=== PATIENT | male | born 1955 ===

== ENCOUNTER 2017-09-07 22:56 | Emergency (ER) | payer MEDICAID, OTHER ==
[~2017-09-07] VITALS: Ht 170.2 cm; Wt 75.1 kg
[~2017-09-07 22:56] MED LIST: LISI-167 PO; METF10002 PO; SIMV40TA3 PO
[2017-09-07 22:57] VITALS: BP 148/71
== END 2017-09-07 23:47 | disposition home or self-care (01) ==
LOC: ED 23:15
DX: L03.114 Cellulitis of left upper limb (principal); I10 Essential (primary) hypertension; E11.9 Type 2 diabetes mellitus without complications
CPT/HCPCS: 99283

== ENCOUNTER 2018-01-03 23:21 | Inpatient (IN) | payer MEDICAID, OTHER ==
[~2018-01-03] VITALS: Ht 165.1 cm; Wt 76.0 kg
[2018-01-03] MEDS ORDERED: ASPIRIN 81 MG TABLET CHEW ONE (23:35)
[2018-01-03] MEDS ORDERED: ASPIRIN 325 MG TABLET PO STA (23:36)
[2018-01-03] MEDS ORDERED: ATOR40TA78 PO (23:42)
[2018-01-03] MEDS ORDERED: CARV6.2512 PO (23:42)
[2018-01-03] MEDS ORDERED: INSU100V13 SQ (23:46)
[2018-01-03 23:49] LABS: BASOPHILS # (AUTO) 0.05 x10^3/uL (0-0.1); BASOPHILS % (AUTO) 1 % (0-1); EOSINOPHILS # (AUTO) 0.02 x10^3/uL (0-0.4); EOSINOPHILS % (AUTO) 0 % (1-7); LYMPHOCYTES # (AUTO) 2.27 x10^3/uL (1-3.4); LYMPHOCYTES % (AUTO) 22 % (22-44); MD NO; MEAN CORPUSCULAR HEMOGLOBIN 29.7 pg (27.5-34.5); MEAN CORPUSCULAR HGB CONC 33.6 g/dL (33.2-36.2); MEAN CORPUSCULAR VOLUME 88.5 fL (81-97); MEAN PLATELET VOLUME 10.5 fL (7.4-10.4); MONOCYTES % (AUTO) 5 % (2-9); NEUTROPHILS # (AUTO) 7.43 x10^3/uL (1.8-6.8); NEUTROPHILS % (AUTO) 72 % (42-75); PLATELET COUNT 196 x10^3/uL (130-400); RED BLOOD COUNT 5.41 x10^6/uL (4.38-5.82); RED CELL DISTRIBUTION WIDTH 13.1 % (9.4-14.8)
[2018-01-04] VITALS (7 sets, daily range): BP systolic 83–114; BP diastolic 55–67
[2018-01-04] LABS: INTERNATIONAL NORMALIZED RATIO 0.93 (0.93-1.1); PROTHROMBIN TIME 9.6 Seconds (9.6-11.5)
[2018-01-04] MEDS ORDERED: SODIUM CHLORIDE 0.9% 1,000 ML IV SCH (00:20)
[2018-01-04] MEDS ORDERED: HEPARIN 25,000 UNITS/500ML PMX 500 ML ONE (00:22)
[2018-01-04] MEDS ORDERED: HEPARIN 5,000 UNITS/ML, 1ML ONE (00:22)
[2018-01-04] MEDS ORDERED: BISACODYL 10 MG SUPP PR PRN (00:30)
[2018-01-04] MEDS ORDERED: HEPARIN 25,000 UNITS/500ML PMX 500 ML IV PRN (00:30)
[2018-01-04] MEDS ORDERED: ONDANSETRON ODT 4 MG PO PRN (00:30)
[2018-01-04] MEDS ORDERED: PROMETHAZINE 25 MG/ML, 1ML IM PRN (00:30)
[2018-01-04] MEDS ORDERED: ONDANSETRON 2MG/ML, 2ML IVPush PRN (00:30)
[2018-01-04] MEDS ORDERED: OXYcodone/APAP 5/325MG TABLET PO PRN (00:30)
[2018-01-04] MEDS ORDERED: TICAGRELOR 90 MG TABLET PO ONE (00:30)
[2018-01-04] MEDS ORDERED: DOCUSATE 100 MG CAPSULE PO PRN (00:30)
[2018-01-04] MEDS ORDERED: POLYETHYLENE GLYCOL 17 GM PACKET PO PRN (00:30)
[2018-01-04] MEDS ORDERED: LABETALOL 5MG/ML, 20ML IVPush PRN (00:30)
[2018-01-04] MEDS ORDERED: HEPARIN 5,000 UNITS/ML, 1ML IV ONE (00:30)
[2018-01-04] MEDS ORDERED: hydrALAzine 20 MG/ML, 1ML IVPush PRN (00:30)
[2018-01-04 00:36] LABS: ALANINE AMINOTRANSFERASE 28 U/L (12-78); ALBUMIN 3.7 g/dL (3.4-5.0); ANION GAP 12 mmol/L (5-15); CHLORIDE 100 mmol/L (98-107); CREATININE 1.11 mg/dL (0.7-1.3)
[2018-01-04 00:38] LABS: ALKALINE PHOSPHATASE 157 U/L (45-117); BILIRUBIN,TOTAL 0.4 mg/dL (0.2-1.0); TOTAL PROTEIN 7.8 g/dL (6.4-8.2)
[2018-01-04 00:56] LABS: HEMOGLOBIN A1C 12.3 % (4.2-6.3)
[2018-01-04 00:57] LABS: FREE T4 (FREE THYROXINE) 1.38 ng/dL (0.76-1.46); THYROID STIMULATING HORMONE 0.378 mIU/L (0.358-3.740)
[2018-01-04] MEDS: INSULIN GLARGINE 100 UNITS/ML, PEN SQ-INSULIN SCH ×2 (02:04→21:02)
[2018-01-04] MEDS: ATORVASTATIN 80 MG TABLET PO SCH ×2 (02:04→21:02)
[2018-01-04] MEDS: INSULIN LISPRO 100 UNITS/ML, PEN SQ-INSULIN SCH ×5 (02:04→21:03)
[2018-01-04 03:17] LABS: MICROSCOPIC AUTO
[2018-01-04 03:21] LABS: CULTURE INDICATED? NO
[2018-01-04 03:46] LABS: BASOPHILS # (AUTO) 0.03 x10^3/uL (0-0.1); BASOPHILS % (AUTO) 0 % (0-1); EOSINOPHILS # (AUTO) 0.03 x10^3/uL (0-0.4); EOSINOPHILS % (AUTO) 0 % (1-7); LYMPHOCYTES # (AUTO) 4.08 x10^3/uL (1-3.4); LYMPHOCYTES % (AUTO) 34 % (22-44); MD NO; MEAN CORPUSCULAR HEMOGLOBIN 30.2 pg (27.5-34.5); MEAN CORPUSCULAR HGB CONC 34.1 g/dL (33.2-36.2); MEAN CORPUSCULAR VOLUME 88.7 fL (81-97); MEAN PLATELET VOLUME 10.3 fL (7.4-10.4); MONOCYTES # (AUTO) 0.77 x10^3/uL (0.2-0.8); MONOCYTES % (AUTO) 6 % (2-9); NEUTROPHILS # (AUTO) 7.18 x10^3/uL (1.8-6.8); NEUTROPHILS % (AUTO) 59 % (42-75); PLATELET COUNT 182 x10^3/uL (130-400); RED BLOOD COUNT 5.33 x10^6/uL (4.38-5.82); RED CELL DISTRIBUTION WIDTH 13.1 % (9.4-14.8)
[2018-01-04 03:56] LABS: ALBUMIN 3.4 g/dL (3.4-5.0); ANION GAP 10 mmol/L (5-15); CALCIUM 8.8 mg/dL (8.5-10.1); CHLORIDE 107 mmol/L (98-107)
[2018-01-04 04:00] LABS: ALANINE AMINOTRANSFERASE 37 U/L (12-78); ALKALINE PHOSPHATASE 140 U/L (45-117); BILIRUBIN,TOTAL 0.7 mg/dL (0.2-1.0); CHOL/HDL RATIO 6.5; CHOLESTEROL, TOTAL 233 mg/dL (140-239); CREATININE 0.83 mg/dL (0.7-1.3); HDL CHOL % 15 % (26-37); HDL CHOLESTEROL (DIRECT) 36 mg/dL (40-60); LDL CHOLESTEROL,CALCULATED 157 mg/dL (54-169); LDL/HDL RATIO 4.4 (0.5-3.0); TOTAL PROTEIN 7.2 g/dL (6.4-8.2); TRIGLYCERIDES 198 mg/dL (50-200); VLDL CHOLESTEROL 40 mg/dL (0-25)
[2018-01-04] MEDS: METOPROLOL TARTRATE 25 MG TABLET PO SCH ×2 (05:13→12:47)
[2018-01-04] MEDS ORDERED: ASPIRIN 325 MG TABLET EC PO SCH (06:00)
[2018-01-04] MEDS: HEPARIN 5,000 UNITS/ML, 1ML IV PRN ×2 (06:54→13:41)
[2018-01-04] MEDS: PANTOPRAZOLE 40 MG IV IVPush SCH (08:19)
[2018-01-04] MEDS: TICAGRELOR 90 MG TABLET PO SCH ×2 (08:20→21:01)
[2018-01-04] MEDS ORDERED: SODIUM CHLORIDE 0.9% 1,000 ML IV ONE (08:53)
[2018-01-04] MEDS ORDERED: SODIUM CHLORIDE 0.9%, 250ML IVBOLUS ONE (13:00)
[2018-01-04] MEDS ORDERED: FENTANYL PF 100 MCG/2ML ONE (16:51)
[2018-01-04] MEDS ORDERED: MIDAZOLAM 1 MG/ML, 5ML ONE (16:51)
[2018-01-04] MEDS ORDERED: BIVALIRUDIN 250 MG ONE (16:51)
[2018-01-04] MEDS ORDERED: TICAGRELOR 90 MG TABLET PO SCH (21:00)
[2018-01-05 02:05] VITALS: BP 92/55
[2018-01-05 05:18] LABS: ANION GAP 9 mmol/L (5-15); CALCIUM 8.7 mg/dL (8.5-10.1); CHLORIDE 113 mmol/L (98-107); CREATININE 0.75 mg/dL (0.7-1.3)
[2018-01-05] MEDS ORDERED: ASPIRIN 81 MG TABLET EC PO SCH (06:00)
[2018-01-05 07:45] VITALS: BP 100/64
[2018-01-05] MEDS: PANTOPRAZOLE 40 MG IV IVPush SCH (08:03)
[2018-01-05] MEDS: METOPROLOL TARTRATE 25 MG TABLET PO SCH ×2 (08:04→20:21)
[2018-01-05] MEDS: TICAGRELOR 90 MG TABLET PO SCH ×2 (08:05→21:31)
[2018-01-05] MEDS: INSULIN LISPRO 100 UNITS/ML, PEN SQ-INSULIN SCH ×3 (08:21→21:22)
[2018-01-05] MEDS ORDERED: SODIUM CHLORIDE 0.9% 1,000 ML IV ONE (10:24)
[2018-01-05] MEDS ORDERED: POTASSIUM CHLORIDE 20 MEQ TAB.ER.PRT PO ONE ×2 (10:30→21:00)
[2018-01-05 14:20] VITALS: BP 104/67
[2018-01-05] MEDS ORDERED: FENTANYL PF 250 MCG/5ML ONE ×2 (14:29→17:07)
[2018-01-05] MEDS ORDERED: PHENYLEPHRINE 10 MG/ML ONE (14:51)
[2018-01-05] MEDS ORDERED: TICAGRELOR 90 MG TABLET ONE (14:53)
[2018-01-05] MEDS ORDERED: HEPARIN 1,000 UNITS/ML, 10ML ONE (14:53)
[2018-01-05] MEDS ORDERED: VERAPAMIL 2.5 MG/ML, 2ML ONE ×2 (14:53→16:23)
[2018-01-05] MEDS ORDERED: LIDOCAINE-MPF 1%, 5ML ONE (14:53)
[2018-01-05] MEDS ORDERED: BIVALIRUDIN 250 MG ONE ×2 (14:53→16:56)
[2018-01-05] MEDS ORDERED: EPINEPHRINE 1 MG/ML, 1ML ONE ×2 (15:13)
[2018-01-05] MEDS ORDERED: PROPOFOL 10 MG/ML, 20ML ONE (15:14)
[2018-01-05] MEDS ORDERED: ROCURONIUM 10MG/ML,5ML ONE (15:14)
[2018-01-05] MEDS ORDERED: SUCCINYLCHOLINE 20 MG/ML, 10ML ONE (15:14)
[2018-01-05] MEDS ORDERED: ONDANSETRON 2MG/ML, 2ML ONE (15:46)
[2018-01-05] MEDS ORDERED: ADENOSINE 6 MG/2 ML ONE (16:54)
[2018-01-05] MEDS ORDERED: MIDAZOLAM 1 MG/ML, 2ML ONE (17:07)
[2018-01-05] MEDS ORDERED: PROPOFOL 50 ML ONE (17:08)
[2018-01-05] MEDS ORDERED: HEPARIN 25,000 UNITS/500ML PMX 500 ML IV SCH (17:37)
[2018-01-05] MEDS ORDERED: HEPARIN 25,000 UNITS in DEXTROSE 10% 500 ML IV SCH (17:37)
[2018-01-05] MEDS ORDERED: HEPARIN 25,000 UNITS in DEXTROSE 20% 500 ML IV SCH (17:37)
[2018-01-05 18:14] LABS: PLATELET COUNT 156 x10^3/uL (130-400)
[2018-01-05 18:16] LABS: ANION GAP 12 mmol/L (5-15); CALCIUM 7.3 mg/dL (8.5-10.1); CHLORIDE 114 mmol/L (98-107); CREATININE 0.94 mg/dL (0.7-1.3)
[2018-01-05] MEDS ORDERED: PROPOFOL 100 ML IV ONE (18:25)
[2018-01-05 18:47] LABS: INTERNATIONAL NORMALIZED RATIO 7.6 (0.93-1.1); PROTHROMBIN TIME 75.2 Seconds (9.6-11.5)
[2018-01-05] MEDS ORDERED: LIDOCAINE-MPF 1%, 2ML ENDO PRN (19:00)
[2018-01-05] MEDS ORDERED: PHARMACY MAY ADJ FOR RENAL FX MC SCH (19:00)
[2018-01-05] MEDS ORDERED: MAGNESIUM SULFATE PMX 2GM/50ML 50 ML IV ONE (20:30)
[2018-01-05] MEDS ORDERED: SODIUM BICARB 8.4%, 50ML SYRINGE IVPush ONE (21:00)
[2018-01-05] MEDS ORDERED: SODIUM CHLORIDE 0.9%, 500ML IVBOLUS ONE (21:00)
[2018-01-05] MEDS ORDERED: SODIUM BICARBONATE 1 MEQ/ML, 50ML VIAL IVPush ONE (21:00)
[2018-01-05] MEDS: INSULIN GLARGINE 100 UNITS/ML, PEN SQ-INSULIN SCH (21:23)
[2018-01-05] MEDS: ATORVASTATIN 80 MG TABLET PO SCH (21:31)
[2018-01-05] MEDS: REGULAR INSULIN 62.5 UNITS in SODIUM CHLORIDE 0.9% 249.375 ML IV PRN (21:32)
[2018-01-05] MEDS: EPINEPHRINE 2 MG in SODIUM CHLORIDE 0.9% 248 ML IV PRN (22:10)
[2018-01-05] MEDS ORDERED: HEPARIN 25,000 UNITS in SODIUM CHLORIDE 0.45% 495 ML IV PRN (22:30)
[2018-01-05] MEDS: ACETAMINOPHEN 325 MG TABLET PO PRN (23:17)
[2018-01-05] MEDS: PROPOFOL 100 ML IV PRN (23:17)
[2018-01-06 01:02] LABS: MICROSCOPIC INDICATED
[2018-01-06 01:21] LABS: CULTURE INDICATED? YES
[2018-01-06 03:26] LABS: MEAN CORPUSCULAR HEMOGLOBIN 30.8 pg (27.5-34.5); MEAN CORPUSCULAR HGB CONC 34.2 g/dL (33.2-36.2); MEAN CORPUSCULAR VOLUME 90.1 fL (81-97); MEAN PLATELET VOLUME 10.3 fL (7.4-10.4); PLATELET COUNT 140 x10^3/uL (130-400); RED BLOOD COUNT 4.29 x10^6/uL (4.38-5.82); RED CELL DISTRIBUTION WIDTH 13.7 % (9.4-14.8)
[2018-01-06 03:31] LABS: ANION GAP 11 mmol/L (5-15); CALCIUM 7.6 mg/dL (8.5-10.1); CHLORIDE 116 mmol/L (98-107)
[2018-01-06 03:50] LABS: BASOPHILS # (AUTO) 0.06 x10^3/uL (0-0.1); BASOPHILS % (AUTO) 1 % (0-1); EOSINOPHILS % (AUTO) 0 % (1-7); LYMPHOCYTES # (AUTO) 2.05 x10^3/uL (1-3.4); LYMPHOCYTES % (AUTO) 16 % (22-44); MD SCAN; MONOCYTES # (AUTO) 1.61 x10^3/uL (0.2-0.8); MONOCYTES % (AUTO) 13 % (2-9); NEUTROPHILS # (AUTO) 8.94 x10^3/uL (1.8-6.8); NEUTROPHILS % (AUTO) 71 % (42-75)
[2018-01-06] MEDS ORDERED: POTASSIUM CHLORIDE 40 MEQ in SODIUM CHLORIDE 0.9% 100 ML IV ONE (04:00)
[2018-01-06] MEDS: PROPOFOL 100 ML IV PRN ×2 (05:37→09:39)
[2018-01-06] MEDS: EPINEPHRINE 2 MG in SODIUM CHLORIDE 0.9% 248 ML IV PRN (05:39)
[2018-01-06] MEDS: METOPROLOL TARTRATE 25 MG TABLET PO SCH ×2 (06:00→19:03)
[2018-01-06] MEDS: REGULAR INSULIN 62.5 UNITS in SODIUM CHLORIDE 0.9% 249.375 ML IV PRN (06:07)
[2018-01-06] MEDS ORDERED: ASPIRIN 81 MG TABLET CHEW PO SCH (06:10)
[2018-01-06] MEDS ORDERED: ASPIRIN 81 MG TABLET CHEW ONE (06:16)
[2018-01-06] MEDS: ACETAMINOPHEN 325 MG TABLET PO PRN (06:19)
[2018-01-06] MEDS: ASPIRIN 81 MG TABLET CHEW PO SCH (06:19)
[2018-01-06] MEDS: INSULIN LISPRO 100 UNITS/ML, PEN SQ-INSULIN SCH ×4 (08:18→21:55)
[2018-01-06] MEDS: FENTANYL PF 100 MCG/2ML IVPush PRN ×2 (08:22→10:44)
[2018-01-06] MEDS: TICAGRELOR 90 MG TABLET PO SCH ×2 (08:36→21:51)
[2018-01-06] MEDS: PANTOPRAZOLE 40 MG IV IVPush SCH (08:36)
[2018-01-06] MEDS ORDERED: SODIUM CHLORIDE 0.9%, 250ML IVBOLUS ONE (10:00)
[2018-01-06] MEDS ORDERED: FENTANYL PF 100 MCG/2ML ONE (11:40)
[2018-01-06] MEDS ORDERED: MIDAZOLAM 1 MG/ML, 2ML ONE (11:40)
[2018-01-06] MEDS ORDERED: LIDOCAINE/PF 1%, 30ML ONE (11:40)
[2018-01-06] MEDS: ATORVASTATIN 80 MG TABLET PO SCH (21:51)
[2018-01-06] MEDS: INSULIN GLARGINE 100 UNITS/ML, PEN SQ-INSULIN SCH (21:54)
[2018-01-07 04:44] LABS: ANION GAP 12 mmol/L (5-15); CALCIUM 7.8 mg/dL (8.5-10.1); CHLORIDE 111 mmol/L (98-107); CREATININE 0.67 mg/dL (0.7-1.3)
[2018-01-07 04:58] LABS: BASOPHILS # (AUTO) 0.01 x10^3/uL (0-0.1); BASOPHILS % (AUTO) 0 % (0-1); EOSINOPHILS % (AUTO) 1 % (1-7); LYMPHOCYTES # (AUTO) 1.97 x10^3/uL (1-3.4); LYMPHOCYTES % (AUTO) 15 % (22-44); MD NO; MEAN CORPUSCULAR HEMOGLOBIN 30.4 pg (27.5-34.5); MEAN CORPUSCULAR HGB CONC 34.3 g/dL (33.2-36.2); MEAN CORPUSCULAR VOLUME 88.7 fL (81-97); MEAN PLATELET VOLUME 11.3 fL (7.4-10.4); MONOCYTES # (AUTO) 1.38 x10^3/uL (0.2-0.8); MONOCYTES % (AUTO) 11 % (2-9); NEUTROPHILS # (AUTO) 9.54 x10^3/uL (1.8-6.8); NEUTROPHILS % (AUTO) 73 % (42-75); PLATELET COUNT 106 x10^3/uL (130-400); RED BLOOD COUNT 4.03 x10^6/uL (4.38-5.82); RED CELL DISTRIBUTION WIDTH 13.2 % (9.4-14.8)
[2018-01-07] MEDS: ASPIRIN 81 MG TABLET CHEW PO SCH (06:12)
[2018-01-07] MEDS: METOPROLOL TARTRATE 25 MG TABLET PO SCH (06:12)
[2018-01-07] MEDS: PANTOPRAZOLE 40 MG IV IVPush SCH (07:53)
[2018-01-07] MEDS: TICAGRELOR 90 MG TABLET PO SCH ×2 (07:54→20:08)
[2018-01-07] MEDS: INSULIN LISPRO 100 UNITS/ML, PEN SQ-INSULIN SCH ×4 (07:55→20:09)
[2018-01-07] MEDS ORDERED: POTASSIUM CHLORIDE 20 MEQ TAB.ER.PRT PO ONE (08:30)
[2018-01-07] MEDS ORDERED: MAGNESIUM SULFATE PMX 2GM/50ML 50 ML IV ONE (09:00)
[2018-01-07] MEDS: LISINOPRIL 5 MG TABLET PO SCH (09:49)
[2018-01-07 10:54] VITALS: BP 109/73
[2018-01-07 12:52] VITALS: BP 103/68
[2018-01-07 14:59] LABS: CLOSTRIDIUM DIFFICILE ANTIGEN NEGATIVE; CLOSTRIDIUM DIFFICILE TOXIN NEGATIVE (Negative)
[2018-01-07 15:08] VITALS: BP 106/71
[2018-01-07] MEDS: CEFTRIAXONE PMX 1GM/50ML 50 ML IV SCH (15:43)
[2018-01-07] MEDS: CARVEDILOL 6.25 MG TABLET PO SCH (17:32)
[2018-01-07 19:02] VITALS: BP 105/75
[2018-01-07] MEDS: INSULIN GLARGINE 100 UNITS/ML, PEN SQ-INSULIN SCH (20:08)
[2018-01-07] MEDS: ATORVASTATIN 80 MG TABLET PO SCH (20:08)
[2018-01-07] MEDS: GUAIFENESIN/DM 200-20MG, 10ML UDC PO PRN (21:40)
[2018-01-08] MEDS: LOPERAMIDE 2 MG CAPSULE PO PRN ×2 (00:01→15:32)
[2018-01-08 00:33] VITALS: BP 107/93
[2018-01-08 05:31] LABS: ANION GAP 8 mmol/L (5-15); CALCIUM 7.9 mg/dL (8.5-10.1); CHLORIDE 112 mmol/L (98-107)
[2018-01-08 05:36] LABS: TRIGLYCERIDES 102 mg/dL (50-200)
[2018-01-08] MEDS: CARVEDILOL 6.25 MG TABLET PO SCH (06:03)
[2018-01-08] MEDS: ASPIRIN 81 MG TABLET CHEW PO SCH (06:03)
[2018-01-08 06:19] LABS: MEAN CORPUSCULAR HEMOGLOBIN 30.9 pg (27.5-34.5); MEAN CORPUSCULAR HGB CONC 34.4 g/dL (33.2-36.2); MEAN CORPUSCULAR VOLUME 89.7 fL (81-97); MEAN PLATELET VOLUME 10.9 fL (7.4-10.4); PLATELET COUNT 121 x10^3/uL (130-400); RED BLOOD COUNT 4.05 x10^6/uL (4.38-5.82); RED CELL DISTRIBUTION WIDTH 13.2 % (9.4-14.8)
[2018-01-08 06:20] LABS: BASOPHILS # (AUTO) 0.04 x10^3/uL (0-0.1); BASOPHILS % (AUTO) 0 % (0-1); EOSINOPHILS # (AUTO) 0.08 x10^3/uL (0-0.4); EOSINOPHILS % (AUTO) 1 % (1-7); LYMPHOCYTES # (AUTO) 2.22 x10^3/uL (1-3.4); LYMPHOCYTES % (AUTO) 21 % (22-44); MD SCAN; MONOCYTES # (AUTO) 0.93 x10^3/uL (0.2-0.8); MONOCYTES % (AUTO) 9 % (2-9); NEUTROPHILS # (AUTO) 7.15 x10^3/uL (1.8-6.8); NEUTROPHILS % (AUTO) 69 % (42-75)
[2018-01-08] MEDS: INSULIN LISPRO 100 UNITS/ML, PEN SQ-INSULIN SCH ×4 (07:00→20:45)
[2018-01-08 07:07] VITALS: BP 98/62
[2018-01-08] MEDS: LISINOPRIL 5 MG TABLET PO SCH (07:50)
[2018-01-08] MEDS: PANTOPRAZOLE 40 MG IV IVPush SCH (08:39)
[2018-01-08] MEDS: TICAGRELOR 90 MG TABLET PO SCH ×2 (08:40→20:44)
[2018-01-08 13:10] VITALS: BP 111/76
[2018-01-08] MEDS: CEFTRIAXONE PMX 1GM/50ML 50 ML IV SCH (15:15)
[2018-01-08] MEDS: GUAIFENESIN/DM 200-20MG, 10ML UDC PO PRN (15:32)
[2018-01-08 17:32] VITALS: BP 108/68
[2018-01-08] MEDS: CARVEDILOL 12.5 MG TABLET PO SCH (17:37)
[2018-01-08 18:54] VITALS: BP 97/64
[2018-01-08] MEDS: INSULIN GLARGINE 100 UNITS/ML, PEN SQ-INSULIN SCH (20:44)
[2018-01-08] MEDS: ATORVASTATIN 80 MG TABLET PO SCH (20:44)
[2018-01-09 01:02] VITALS: BP 98/64
[2018-01-09 05:11] LABS: BASOPHILS # (AUTO) 0.12 x10^3/uL (0-0.1); BASOPHILS % (AUTO) 2 % (0-1); EOSINOPHILS # (AUTO) 0.07 x10^3/uL (0-0.4); EOSINOPHILS % (AUTO) 1 % (1-7); LYMPHOCYTES # (AUTO) 2.69 x10^3/uL (1-3.4); LYMPHOCYTES % (AUTO) 34 % (22-44); MD NO; MEAN CORPUSCULAR HGB CONC 33.7 g/dL (33.2-36.2); MEAN CORPUSCULAR VOLUME 89.3 fL (81-97); MEAN PLATELET VOLUME 11.2 fL (7.4-10.4); MONOCYTES # (AUTO) 0.81 x10^3/uL (0.2-0.8); MONOCYTES % (AUTO) 10 % (2-9); NEUTROPHILS # (AUTO) 4.26 x10^3/uL (1.8-6.8); NEUTROPHILS % (AUTO) 54 % (42-75); PLATELET COUNT 130 x10^3/uL (130-400); RED BLOOD COUNT 3.81 x10^6/uL (4.38-5.82); RED CELL DISTRIBUTION WIDTH 13.2 % (9.4-14.8)
[2018-01-09 05:14] LABS: ANION GAP 11 mmol/L (5-15); CALCIUM 7.6 mg/dL (8.5-10.1); CHLORIDE 112 mmol/L (98-107); CREATININE 0.71 mg/dL (0.7-1.3)
[2018-01-09 05:18] VITALS: BP 96/61
[2018-01-09] MEDS: CARVEDILOL 12.5 MG TABLET PO SCH ×2 (05:23→17:59)
[2018-01-09] MEDS: ASPIRIN 81 MG TABLET CHEW PO SCH (05:23)
[2018-01-09 07:01] VITALS: BP 96/59
[2018-01-09] MEDS: INSULIN LISPRO 100 UNITS/ML, PEN SQ-INSULIN SCH ×4 (07:30→21:39)
[2018-01-09] MEDS: PANTOPRAZOLE 40 MG IV IVPush SCH (07:31)
[2018-01-09] MEDS: TICAGRELOR 90 MG TABLET PO SCH ×2 (08:33→21:38)
[2018-01-09] MEDS: LISINOPRIL 5 MG TABLET PO SCH (08:33)
[2018-01-09] MEDS ORDERED: POTASSIUM CHLORIDE 20 MEQ TAB.ER.PRT PO ONE (10:30)
[2018-01-09] MEDS: SPIRONOLACTONE 25 MG TABLET PO SCH (11:01)
[2018-01-09 12:46] VITALS: BP 98/68
[2018-01-09 17:52] VITALS: BP 96/62
[2018-01-09 19:32] VITALS: BP 102/66
[2018-01-09] MEDS: ATORVASTATIN 80 MG TABLET PO SCH (21:38)
[2018-01-09] MEDS: INSULIN GLARGINE 100 UNITS/ML, PEN SQ-INSULIN SCH (21:39)
[2018-01-10 01:25] VITALS: BP 100/65
[2018-01-10 05:21] LABS: BASOPHILS # (AUTO) 0.08 x10^3/uL (0-0.1); BASOPHILS % (AUTO) 1 % (0-1); EOSINOPHILS # (AUTO) 0.12 x10^3/uL (0-0.4); EOSINOPHILS % (AUTO) 1 % (1-7); LYMPHOCYTES # (AUTO) 2.72 x10^3/uL (1-3.4); LYMPHOCYTES % (AUTO) 32 % (22-44); MD NO; MEAN CORPUSCULAR HEMOGLOBIN 30.7 pg (27.5-34.5); MEAN CORPUSCULAR HGB CONC 34.5 g/dL (33.2-36.2); MEAN PLATELET VOLUME 11.2 fL (7.4-10.4); MONOCYTES # (AUTO) 0.99 x10^3/uL (0.2-0.8); MONOCYTES % (AUTO) 12 % (2-9); NEUTROPHILS # (AUTO) 4.63 x10^3/uL (1.8-6.8); NEUTROPHILS % (AUTO) 54 % (42-75); PLATELET COUNT 142 x10^3/uL (130-400); RED BLOOD COUNT 3.97 x10^6/uL (4.38-5.82); RED CELL DISTRIBUTION WIDTH 13.1 % (9.4-14.8)
[2018-01-10] MEDS: ASPIRIN 81 MG TABLET CHEW PO SCH (05:26)
[2018-01-10] MEDS: CARVEDILOL 12.5 MG TABLET PO SCH (05:28)
[2018-01-10 05:31] VITALS: BP 108/64
[2018-01-10 05:32] LABS: ANION GAP 9 mmol/L (5-15); CALCIUM 7.9 mg/dL (8.5-10.1); CHLORIDE 111 mmol/L (98-107)
[2018-01-10 05:38] LABS: CREATININE 0.72 mg/dL (0.7-1.3)
[2018-01-10 07:13] VITALS: BP 96/52
[2018-01-10] MEDS: PANTOPRAZOLE 40 MG IV IVPush SCH (08:56)
[2018-01-10] MEDS: TICAGRELOR 90 MG TABLET PO SCH (08:57)
[2018-01-10] MEDS: LISINOPRIL 5 MG TABLET PO SCH (08:57)
[2018-01-10] MEDS: SPIRONOLACTONE 25 MG TABLET PO SCH (08:57)
[2018-01-10] MEDS: INSULIN LISPRO 100 UNITS/ML, PEN SQ-INSULIN SCH (08:58)
[2018-01-10] MEDS ORDERED: POTASSIUM CHLORIDE 20 MEQ TAB.ER.PRT PO ONE (09:30)
[2018-01-10] MEDS ORDERED: LISI5TAB7 PO (09:33)
[2018-01-10] MEDS ORDERED: TICA90TA PO (09:33)
[2018-01-10] MEDS ORDERED: CARV12.543 PO (09:33)
[2018-01-10] MEDS ORDERED: ATOR40TA78 PO (09:33)
[2018-01-10] MEDS ORDERED: SPIR25TA PO (09:33)
[2018-01-10] MEDS ORDERED: ASPI-515 PO (09:33)
== END 2018-01-10 13:02 | disposition home or self-care (01) | DRG 215 ==
LOC: ED 23:35 → 5SO 01-04 00:24 → CSU 01-05 15:01 → 5SO 01-07 10:46
PROVIDERS: ADMIT Internal Medicine; ATTEND Hospitalist
PROC: 5A0221D Assistance with Cardiac Output using Impeller Pump, Continuous (ICD-10-PCS; 2018-01-05)
PROC: 02C13ZZ Extirpation of Matter from Coronary Artery, Two Arteries, Percutaneous Approach (ICD-10-PCS; 2018-01-05)
PROC: 027237Z Dilation of Coronary Artery, Three Arteries with Four or More Drug-eluting Intraluminal Devices, Percutaneous Approach (ICD-10-PCS; 2018-01-05)
PROC: 4A023N7 Measurement of Cardiac Sampling and Pressure, Left Heart, Percutaneous Approach (ICD-10-PCS; 2018-01-05)
PROC: B2111ZZ Fluoroscopy of Multiple Coronary Arteries using Low Osmolar Contrast (ICD-10-PCS; 2018-01-05)
PROC: B2181ZZ Fluoroscopy of Left Internal Mammary Bypass Graft using Low Osmolar Contrast (ICD-10-PCS; 2018-01-05)
PROC: B2151ZZ Fluoroscopy of Left Heart using Low Osmolar Contrast (ICD-10-PCS; 2018-01-05)
PROC: B2121ZZ Fluoroscopy of Single Coronary Artery Bypass Graft using Low Osmolar Contrast (ICD-10-PCS; 2018-01-05)
PROC: B4101ZZ Fluoroscopy of Abdominal Aorta using Low Osmolar Contrast (ICD-10-PCS; 2018-01-05)
PROC: 5A1935Z Respiratory Ventilation, Less than 24 Consecutive Hours (ICD-10-PCS; 2018-01-05)
PROC: 0BH17EZ Insertion of Endotracheal Airway into Trachea, Via Natural or Artificial Opening (ICD-10-PCS; 2018-01-05)
PROC: 02HA3RZ Insertion of Short-term External Heart Assist System into Heart, Percutaneous Approach (ICD-10-PCS; principal; 2018-01-05 14:50)
PROC: 0T9B70Z Drainage of Bladder with Drainage Device, Via Natural or Artificial Opening (ICD-10-PCS; 2018-01-06)
PROC: 02PA3RZ Removal of Short-term External Heart Assist System from Heart, Percutaneous Approach (ICD-10-PCS; 2018-01-08)
DX: I21.4 Non-ST elevation (NSTEMI) myocardial infarction (principal); J96.01 Acute respiratory failure with hypoxia; E87.2 Acidosis; E11.65 Type 2 diabetes mellitus with hyperglycemia; E78.5 Hyperlipidemia, unspecified; E87.6 Hypokalemia; I25.5 Ischemic cardiomyopathy; I25.82 Chronic total occlusion of coronary artery; I49.3 Ventricular premature depolarization; E87.8 Other disorders of electrolyte and fluid balance, not elsewhere classified; I95.9 Hypotension, unspecified; I50.9 Heart failure, unspecified; I11.0 Hypertensive heart disease with heart failure; I25.10 Atherosclerotic heart disease of native coronary artery without angina pectoris; I25.2 Old myocardial infarction; Z79.4 Long term (current) use of insulin; Z87.891 Personal history of nicotine dependence; Z91.14 Patient's other noncompliance with medication regimen; Z95.1 Presence of aortocoronary bypass graft; Z86.73 Personal history of transient ischemic attack (TIA), and cerebral infarction without residual deficits; Z79.899 Other long term (current) drug therapy
CPT/HCPCS: 33990; 33992; 36415; 36600; 93458; 93459; 99291; C9600; C9606; 71045; 71046; 75625; 80047; 80048; 80053; 80061; 81001; 82330; 82803; 82947; 82962; 83036; 83735; 83880; 84439; 84443; 84478; 84484; 85014; 85018; 85025; 85049; 85347; 85520; 85610; 85730; 87040; 87070; 87081; 87086; 87205; 87324; 93005; 94002; 94003; 96374; 99156; C1760; C1769; C1894; C8929; G0378; J0153; J0171; J0583; J0696; J1644; J1815; J2250; J2405; J2704; J3010; J3480; J3490; Q9957; C1724; C1725; C1874; C1887; C9113; J0330; J2370; J3475; J7030; J7040; J7050; Q9967